=== PATIENT | female | born 1945 | race Caucasian/White ===

== ENCOUNTER → 2018-06-22 | Outpatient (CLI) | payer MEDICARE, OTHER ==
--- NOTE | 2018-06-22 09:13 | MRI ---
EXAM DESCRIPTION: Lumbar Spine w/o Contrast CLINICAL HISTORY: LOW BACK PAIN COMPARISON: X-ray lumbar spine March 09, 2013 TECHNIQUE: MRI of the lumbar spine is performed according to our usual protocol with axial and sagittal multi sequence imaging. FINDINGS: Sagittal T2 images reveal decreased signal intensity consistent with desiccation of the intervertebral discs at levels L2-3 through L5-S1. Posterior annular bulges are most prominent at these levels as well. No prevertebral mass or aneurysm. Lower cord and conus appear normal. Tip of the conus is behind L1. Sagittal T1 images reveal benign marrow signal characteristics. Modic type II changes are seen around degenerative disks at L2-3 and L3-4. Normal T1 signal intensity and appearance of the lower cord and conus. Sagittal STIR images are negative for marrow edema within the posterior elements. Mild increased endplate signal intensity around degenerated disks at L2-3 and L3-4. No paraspinous fluid collection or cystic lesion. Axial T1 and T2-weighted images were obtained to evaluate the disc levels. L1-2: No posterior annular bulge or herniation. No spinal stenosis or neural foraminal narrowing. Mild facet hypertrophic changes. L2-3: Mild diffuse posterior annular bulge with bilateral lateral accentuation. No spinal stenosis. Neural foraminal narrowing is mild bilaterally. Facets appear normal. L3-4: Mild diffuse posterior annular bulge with left lateral accentuation. No spinal stenosis or neural foraminal narrowing. Mild facet hypertrophy. L4-5: Moderate diffuse posterior annular bulge with midline and bilateral lateral accentuation. Mild narrowing of the AP diameter of the spinal canal is seen measuring 1.1 cm in AP dimension. There is [id number] bilateral neural foraminal narrowing. Marked facet hypertrophic spurring is seen with marked ligamentum flavum thickening. There is mild to moderate bilateral subarticular recess narrowing without lateral recess compromise. L5-S1: Mild diffuse posterior annular bulge is seen with superimposed far right lateral disc herniation extending into the right L5 neural foramen. This measures 6 mm in AP dimension and approximately 1.7 cm in mediolateral width. Sagittal images show compression of the exiting right L5 nerve root (sagittal images 12 and 13, series 201). This also contacts the descending right S1 nerve root with slight posterior displacement. Upper sacrum appears intact. Degenerative changes at the SI joints. No retroperitoneal mass or aneurysm. IMPRESSION: Far right lateral L5-S1 disc herniation 6 mm impinging upon the exiting right L5 nerve root and descending right S1 nerve root. Disc degeneration with posterior annular bulges at L2-3 through L5-S1. Electronically signed by: Alen Shelton MD 06/22/2018 9:12 AM [facility]
== END ==
LOC: MRI 07:06
PROVIDERS: ATTEND Nurse Practitioner Family
DX: M51.16 Intervertebral disc disorders with radiculopathy, lumbar region (principal)